=== PATIENT | male | born 1960 | race Caucasian/White ===

== ENCOUNTER → 2016-07-07 | Outpatient (CLI) | payer OTHER ==
[~2016-07-07] MED LIST: AMLO5TAB2 PO; DICL75TA2 PO; LEVO200T PO; LOSA1TAB16 PO; NAPR500T3 PO; OXYC-223 PO; [UNRECOGNIZED DRUG - OTHER] PO; [UNRECOGNIZED DRUG - OTHER] PO
[2016-07-07 09:02] LABS: PATH.CAST-FLAG NOT PRESENT; SPERM-FLAG NOT PRESENT; SRC-FLAG NOT PRESENT; XTAL-FLAG NOT PRESENT; YLC-FLAG NOT PRESENT
[2016-07-07 09:26] LABS: ASPARTATE AMINO TRANSFERASE 18 U/L (15-37); BLOOD UREA NITROGEN 10 mg/dL (7-18)
[2016-07-07 10:55] LABS: HIV 1&2 ANTIBODY SCREEN Nonreactive (Nonreactive); HIV-1 p24 ANTIGEN Nonreactive (Nonreactive)
== END | disposition home or self-care (01) ==
LOC: STAR 07:51
PROVIDERS: ATTEND Orthopaedic Surgery
DX: Z01.818 Encounter for other preprocedural examination (principal); M17.11 Unilateral primary osteoarthritis, right knee
CPT/HCPCS: 36415; 80053; 81001; 85025; 86703; 87081; 87086; 87147; 87899; 93005; G0435

== ENCOUNTER 2016-07-11 05:53 | Inpatient (IN) | payer OTHER ==
[2016-07-08 10:35] VITALS: BP 148/96
[~2016-07-11] VITALS: Ht 172.7 cm; Wt 122.0 kg
[2016-07-11] MEDS ORDERED: KETOROLAC 60 MG/2 ML ONE (06:31)
[2016-07-11] MEDS ORDERED: morphine SULFATE/PF 1 MG/ML, 10ML ONE (06:31)
[2016-07-11] MEDS ORDERED: SODIUM CHLORIDE 0.9% 50 ML ONE (06:32)
[2016-07-11] MEDS ORDERED: EPINEPHRINE 1 MG/ML, 1ML ONE (06:32)
[2016-07-11] MEDS ORDERED: TRANEXAMIC ACID 100 MG/ML, 10ML ONE (06:32)
[2016-07-11] MEDS ORDERED: ROPIvacaine/PF 0.2%, 20 ML ONE (06:32)
[2016-07-11] MEDS ORDERED: VANCOMYCIN PMX 1GM/200ML 200 ML IV STA (06:35)
[2016-07-11] MEDS ORDERED: LACTATED RINGERS 1,000 ML IV SCH (06:36)
[2016-07-11] MEDS ORDERED: LIDOCAINE 1%, 2ML SQ PRN (07:00)
[2016-07-11] MEDS ORDERED: BACITRACIN 50,000 UNIT ONE (07:05)
[2016-07-11] MEDS ORDERED: MIDAZOLAM 1 MG/ML, 2ML ONE (07:15)
[2016-07-11] MEDS ORDERED: FENTANYL PF 100 MCG/2ML ONE (07:15)
[2016-07-11] MEDS ORDERED: ONDANSETRON 2MG/ML, 2ML ONE (07:33)
[2016-07-11] MEDS ORDERED: CEFAZOLIN 1,000 MG ONE (07:33)
[2016-07-11] MEDS ORDERED: PROPOFOL 10 MG/ML, 20ML ONE (07:33)
[2016-07-11] MEDS ORDERED: hydrALAzine 20 MG/ML, 1ML IV PRN (08:30)
[2016-07-11] MEDS ORDERED: MEPERIDINE/PF 25MG/0.5ML IVPush PRN (08:30)
[2016-07-11] MEDS ORDERED: PROMETHAZINE 25 MG/ML, 1ML IV PRN (08:30)
[2016-07-11] MEDS ORDERED: FENTANYL PF 100 MCG/2ML IV PRN (08:30)
[2016-07-11] MEDS ORDERED: ONDANSETRON 2MG/ML, 2ML IVPush PRN ×2 (08:30→10:00)
[2016-07-11] MEDS ORDERED: MIDAZOLAM 1 MG/ML, 2ML IV PRN (08:30)
[2016-07-11] MEDS ORDERED: OXYcodone 5 MG/5 ML ORAL.SOL UDC PO PRN (08:30)
[2016-07-11] MEDS ORDERED: LABETALOL 5MG/ML, 20ML IV PRN (08:30)
[2016-07-11] MEDS ORDERED: HYDROmorphone 1 MG/ML, 1ML IV PRN (08:30)
[2016-07-11] MEDS ORDERED: OXYcodone 5 MG/5 ML ORAL.SOL UDC ONE (09:54)
[2016-07-11] MEDS ORDERED: ACETAMINOPHEN 650 MG/20.3 ML UDC ONE (09:54)
[2016-07-11] MEDS: ACETAMINOPHEN 325 MG TABLET PO PRN (09:57)
[2016-07-11] MEDS ORDERED: ZOLPIDEM 5MG TABLET PO PRN (10:00)
[2016-07-11] MEDS ORDERED: DIPHENHYDRAMINE 50 MG CAPSULE PO PRN (10:00)
[2016-07-11] MEDS ORDERED: LORazepam 2 MG/ML, 1ML IVPush PRN (10:00)
[2016-07-11] MEDS ORDERED: TRANEXAMIC ACID 100 MG/ML, 10ML IVPB ONE (10:00)
[2016-07-11] MEDS ORDERED: HYDROmorphone 2 MG/ML, 1ML ONE (10:06)
[2016-07-11] MEDS ORDERED: VANCOMYCIN PMX 1GM/200ML 200 ML IVPB ONE (11:00)
[2016-07-11] MEDS ORDERED: TRANEXAMIC ACID 1,000 MG in SODIUM CHLORIDE 0.9% 100 ML IV ONE (12:00)
[2016-07-11] MEDS: D5%-0.45% NACL 1,000 ML IV SCH ×4 (12:19→23:48)
[2016-07-11] MEDS: morphine SULFATE 10 MG/ML, 1ML IVPush PRN ×3 (12:29→20:26)
[2016-07-11] MEDS: OXYcodone/APAP 7.5/325MG TABLET PO PRN ×3 (14:05→22:43)
[2016-07-11 14:20] VITALS: BP 121/76
[2016-07-11] MEDS: CEFAZOLIN PMX 1GM/50ML 50 ML IVPB SCH ×2 (17:08→23:28)
[2016-07-11 18:43] VITALS: BP 124/68
[2016-07-11 23:25] VITALS: BP 125/75
[2016-07-11] MEDS ORDERED: ALUMINUM/MAG/SIMETHICONE 30 ML UDC PO PRN (23:30)
[2016-07-12] MEDS: morphine SULFATE 10 MG/ML, 1ML IVPush PRN (01:35)
[2016-07-12] MEDS: OXYcodone/APAP 7.5/325MG TABLET PO PRN ×3 (03:12→20:33)
[2016-07-12 05:44] VITALS: BP 142/65
[2016-07-12 06:31] VITALS: BP 128/71
[2016-07-12] MEDS: D5%-0.45% NACL 1,000 ML IV SCH (08:00)
[2016-07-12] MEDS: ASPIRIN 325 MG TABLET EC PO SCH ×2 (08:00→16:43)
[2016-07-12] MEDS: CEFAZOLIN PMX 1GM/50ML 50 ML IVPB SCH (09:14)
[2016-07-12 14:04] VITALS: BP 115/61
[2016-07-12] MEDS: ACETAMINOPHEN 325 MG TABLET PO PRN (15:44)
[2016-07-12] MEDS ORDERED: ASPIRIN 325 MG TABLET EC PO SCH (17:00)
[2016-07-12 19:04] VITALS: BP 155/88
[2016-07-12] MEDS: DOCUSATE 100 MG CAPSULE PO SCH (20:33)
[2016-07-13 01:09] VITALS: BP 168/88
[2016-07-13] MEDS ORDERED: LEVOTHYROXINE 125 MCG TABLET PO SCH (06:00)
[2016-07-13] MEDS: ACETAMINOPHEN 325 MG TABLET PO PRN ×2 (06:23→10:53)
[2016-07-13 07:20] VITALS: BP 152/84
[2016-07-13] MEDS: ASPIRIN 325 MG TABLET EC PO SCH (08:58)
[2016-07-13] MEDS: DOCUSATE 100 MG CAPSULE PO SCH (08:58)
[2016-07-13] MEDS ORDERED: AMLODIPINE 5 MG TABLET PO SCH (09:00)
[2016-07-13] MEDS ORDERED: LOSARTAN 50MG TABLET PO SCH (09:00)
[2016-07-13] MEDS ORDERED: HYDROCHLOROTHIAZIDE 12.5 MG CAPSULE PO SCH (09:00)
[2016-07-13] MEDS ORDERED: OXYC-223 PO (09:44)
[2016-07-13 10:51] VITALS: BP 162/85
== END 2016-07-13 12:16 | disposition home or self-care (01) | DRG 470 ==
LOC: ORIP 05:53 → 4NOR 10:36 → DCLOUNGE 07-13 11:58
PROVIDERS: ADMIT Orthopaedic Surgery; ATTEND Orthopaedic Surgery
PROC: 0SRC0J9 Replacement of Right Knee Joint with Synthetic Substitute, Cemented, Open Approach (ICD-10-PCS; principal; 2016-07-11 07:30)
DX: M17.11 Unilateral primary osteoarthritis, right knee (principal); Z68.41 Body mass index [BMI] 40.0-44.9, adult; G47.33 Obstructive sleep apnea (adult) (pediatric); I10 Essential (primary) hypertension; E66.01 Morbid (severe) obesity due to excess calories
CPT/HCPCS: 36415; 85018; C1713; J0171; J0690; J1170; J1885; J2250; J2274; J2405; J2704; J2795; J3010; J3370; C1776; J2270; J7120